=== PATIENT | female | born 1985 | race Caucasian/White ===

== ENCOUNTER 2022-03-07 06:01 | Outpatient (CLI) | payer SELFPAY ==
[~2022-03-07] VITALS: Ht 165.1 cm; Wt 59.4 kg
[2022-03-07] MEDS ORDERED: LEVO-129 PO (17:35)
[2022-03-07] MEDS ORDERED: NORG1TAB14 PO (17:35)
[2022-03-07] MEDS ORDERED: OMEP20CA18 PO (17:35)
== END 2022-03-07 17:37 | disposition home or self-care (01) ==
LOC: PREOP 06:01
PROVIDERS: ATTEND Surgery
DX: Z01.818 Encounter for other preprocedural examination (principal)

== ENCOUNTER 2022-03-19 09:32 | Day surgery (SDC) | payer OTHER ==
[~2022-03-19] VITALS: Ht 165 cm; Wt 59.4 kg
[~2022-03-19 09:32] MED LIST: LEVO-129 PO; NORG1TAB14 PO; OMEP20CA18 PO
[2022-03-19] MEDS ORDERED: LACTATED RINGERS 1,000 ML IV STA (09:33)
[2022-03-19] MEDS ORDERED: HURRICAINE EXT TUBE (BENZOCAINE) XX PRN (09:45)
[2022-03-19 09:55] VITALS: BP 138/94
[2022-03-19] MEDS ORDERED: PROPOFOL INJECTION 50 ML IV ONE (10:03)
[2022-03-19] MEDS ORDERED: MIDAZOLAM 2 MG/2 ML (VERSED) VIAL ONE (10:03)
--- NOTE | 2022-03-19 10:11 | Progress Note-Pre Operative ---
Pre-Operative Progress Note Date of Available H&P: Feb 27, 2022 Date H&P Reviewed: Mar 19, 2022 Time H&P Reviewed: 10:07 History & Physical: H&P Reviewed, Patient Examed, No changes noted Pre-Operative Diagnosis: GERD, Hematochezia LESLEE MANZO DO Mar 19, 2022 10:11
[2022-03-19] MEDS ORDERED: proPOfol 200 MG/20 ML (DIPRIVAN) VIAL IV ONE (10:37)
[2022-03-19 10:51] VITALS: BP 110/60
[2022-03-19 10:54] VITALS: BP 138/73
[2022-03-19 10:55] VITALS: BP 138/73
--- NOTE | 2022-03-19 10:59 | Progress Note-Post Operative ---
Post-Operative Progess Note Surgeon (s)/Special Officer (s) Surgeon LESLEE MANZO DO Special Officer: Dean Guzman, MSIII Pre-Operative Diagnosis GERD, Hematochezia Post-Operative Diagnosis Mild Gastritis Hiatal hernia Esophagitis polyp int hemorrhoids Procedure & Operative Findings Date of Procedure 03/19/22 Procedure Performed/Findings EGD with bx Colonoscopy with snare polypectomy PROCEDURE NOTE: After informed consent was obtained, the patient was brought to the endoscopy suite, placed in bed in left lateral decubitus position. She was administered IV sedation by the CLASSIFIED AD CLERK who then monitored vitals the entire time, heart rate, blood pressure and pulse ox and the scope was inserted down the mouth through the esophagus into the stomach. On the way down, noted some mild esophagitis, took a picture, pushed into the stomach, pushed past the antrum into the duodenum. Duodenum looked good. Pulled back, noted mild gastritis and did a biopsy of the antrum, then retroflexed the scope, saw a small hiatal hernia and took a picture of this. I also noted something pushing into the stomach, it appeared to be large protrusion from the outside. Then pulled the scope into the GE junction, took another picture of the hiatal hernia and then did a biopsy of the GE junction. Pushed the scope back into the stomach, suctioned all the air out of the stomach. At this point pulled the scope up the esophagus and out the mouth. Switched camera, switched gloves, went down below and started the colonoscopy. Pushed all the way to about 100 cm and pushed into the cecum, took a picture of the appendiceal orifice and noted the ileocecal valve. Then slowly withdrew the scope insufflating to look circumferentially at the styles starting in the cecum, up the ascending colon to the hepatic flexure, then down the transverse colon, splenic flexure, into the descending colon down and then into the sigmoid where I found a very large pedunculated polyp. I did a snare polypectomy with heat and got almost to the base of the stalk. I had to suction the polyp up to the scope and completely remove the scope with polyp. I then reinserted the scope and slowly brought it back into the rectal vault and retroflexed the scope. Took picture of the internal hemorrhoids. The patient tolerated the procedure and she recovered in the endoscopy suite. Recommended for repeat colonoscopy in 1 year, because it was such a large polyp. Anesthesia Type IV sedation by CLASSIFIED AD CLERK Estimated Blood Loss Estimated blood loss (mL): scant Specimens/Packing Specimens Removed antral bx GE jxn bx Sigmoid polyp LESLEE MANZO DO Mar 19, 2022 10:59
--- NOTE | 2022-03-19 11:00 | Endoscopy Discharge Instruct ---
Endo Procedure/Findings Findings 1.: Gastritis 2.: Hiatal Hernia 3.: Polyp 4.: Internal Hemorrhoids Discharge Instructions - Activity: You might feel a little sleepy until tomorrow. This is due to the medicine you received to relax you. Until tomorrow, you should: NOT drive a car, operate machinery or power tools. NOT drink any alcoholic beverages. NOT make any important decisions or sign importortant papers. Do not return to work until tomorrow, unless otherwise instructed. Resume previous activities tomorrow. Diet: Start by taking liquids. If you tolerate liquids, advance to solid food. 1.: EGD in 3 years 2.: Colonoscopy in 1 year Notify Physician - If you experience excessive bleeding, unusual abdominal pain, fever, or chest pain, contact your doctor immediately. LESLEE MANZO DO Mar 19, 2022 11:00
[2022-03-19 11:23] VITALS: BP 138/73
--- NOTE | 2022-03-19 11:57 | Anesthesia-General Post-Op ---
MAC Patient Condition Mental Status/LOC: Same as Preop Cardiovascular: Satisfactory Nausea/Vomiting: Absent Respiratory: Satisfactory Pain: Controlled Complications: Absent Post Op Complications Complications None Follow Up Care/Instructions Patient Instructions None needed. Anesthesiology Discharge Order Discharge Order Patient is doing well, no complaints, stable vital signs, no apparent adverse anesthesia problems. No complications reported per nursing. AMEENA ZHU CRNA Mar 19, 2022 11:57
== END 2022-03-19 11:33 | disposition home or self-care (01) ==
LOC: ENDO 09:32
PROVIDERS: ATTEND Surgery
DX: K29.51 Unspecified chronic gastritis with bleeding (principal); K44.9 Diaphragmatic hernia without obstruction or gangrene; K51.40 Inflammatory polyps of colon without complications; K21.01 Gastro-esophageal reflux disease with esophagitis, with bleeding; K31.89 Other diseases of stomach and duodenum; K64.8 Other hemorrhoids; Z80.0 Family history of malignant neoplasm of digestive organs; Z28.310 Unvaccinated for COVID-19; Z87.891 Personal history of nicotine dependence; Z79.899 Other long term (current) drug therapy
CPT/HCPCS: 84703

== ENCOUNTER → 2022-04-04 | Outpatient (CLI) | payer OTHER ==
[~2022-04-04] MED LIST changes: +HOLD METFORMIN - RECEIVED CONTRAST 20 ML VIAL IV SCH; +IOHEXOL 350 MG/ML 100 ML (OMNIPAQUE 350) VIAL IV ONE; +NS 100 ML (IVPB) BAG IV ONE
--- NOTE | 2022-04-04 15:49 | Diagnostic Imaging Report ---
PROCEDURE: CT abdomen and pelvis with contrast. TECHNIQUE: Multiple contiguous axial images were obtained through the abdomen and pelvis after administration of intravenous contrast. Auto Exposure Controls were utilized during the CT exam to meet ALARA standards for radiation dose reduction. All CT scans use one or more of the following dose optimizing techniques: automated exposure control, MA and/or KvP adjustment based on patient size and exam type or iterative reconstruction. INDICATION: Abdominal distention and bloating. Recent polypectomy of the colon. COMPARISON: None. FINDINGS: Included portions of the lung bases are clear. CT ABDOMEN: Normal appendix is identified. Small bowel loops are nondistended. Moderate amount of air and stool is noted scattered throughout the colon. The kidneys, adrenal glands, spleen, pancreas and liver have a normal CT appearance. There is no loculated fluid collection, free fluid or free air. No abnormal adenopathy is seen. Osseous structures show no acute abnormality. CT PELVIS: Urinary bladder is unopacified. No calculi are seen within the bladder. Trace amount of free fluid is noted within the left adnexa. There is no loculated fluid collection or free air. No abnormal adenopathy is seen. Osseous structures show no acute abnormality. IMPRESSION: 1. Small amount of free fluid within the left adnexa; possibly physiologic. 2. Moderate colonic air and stool. Please correlate for constipation. Dictated by: Dictated on workstation # [id number]
== END ==
LOC: RAD 10:07
PROVIDERS: ATTEND Surgery
DX: N83.8 Other noninflammatory disorders of ovary, fallopian tube and broad ligament (principal); K63.89 Other specified diseases of intestine; R19.09 Other intra-abdominal and pelvic swelling, mass and lump
CPT/HCPCS: 74177